=== PATIENT | female | born 1995 | race Caucasian/White ===

== ENCOUNTER → 2017-03-20 | Outpatient (REF) | payer OTHER ==
[2017-03-21 11:17] LABS: MEAN CORPUSCULAR HEMOGLOBIN 30.6 pg (27.0-33.0); MEAN CORPUSCULAR HGB CONC 33.4 g/dl (32.0-36.5); MEAN CORPUSCULAR VOLUME 91.7 fl (80.0-96.0); RED CELL DISTRIBUTION WIDTH 12.4 % (11.5-14.5); WHITE BLOOD COUNT 6.8 K/mm3 (4.0-10.0)
[2017-03-21 11:29] LABS: FREE T4 1.02 NG/DL (0.76-1.46)
== END ==
LOC: M SFHCCLAY 14:39
PROVIDERS: ATTEND Family Medicine
DX: R53.83 Other fatigue (principal)

== ENCOUNTER → 2018-03-30 | Outpatient (REF) | payer OTHER | LOC: M SFHCCLAY 14:56 | DX: Z12.4 Encounter for screening for malignant neoplasm of cervix (principal) ==